=== PATIENT | female | born 1995 | race Caucasian/White ===

== ENCOUNTER 2017-12-30 08:37 | Inpatient (IN) ==
[2017-12-30] MEDS ORDERED: Aluminum/Magnesium/Simethacone Susp 30 ML UDC PO PRN (11:03)
[2017-12-30] MEDS ORDERED: Bisacodyl 10 MG Supp RECTAL PRN (11:03)
[2017-12-31] MEDS: Acetaminophen 325 MG Tablet PO PRN (06:54)
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
[2017-12-31 09:21] LABS: Anion Gap 8 meq/L (5-15); Blood Urea Nitrogen 11 mg/dL (7-18); Chloride 104 meq/L (98-107); Glomerular Filtration Rate Greater Than 89 mL/min (>89); Glucose,Random 120 mg/dL (74-106); Potassium 3.7 meq/L (3.5-5.1); Sodium 140 meq/L (136-145)
[2017-12-31 09:22] LABS: Cholesterol 182 mg/dL (120-200)
[2017-12-31 09:31] LABS: Chol/HDL Ratio 4.26 Ratio; HDL Cholesterol 42.7 mg/dL (40.0-60.0); LDL Cholesterol,Calculated 119 mg/dL (0-99); Triglycerides 100 mg/dL (42-150)
[2017-12-31 16:03] LABS: Hemoglobin A1c 5.7 % (4.3-6.0)
[2017-12-31] MEDS ORDERED: traZODone 50 MG Tablet PO PRN (21:00)
--- NOTE | 2018-01-01 13:36 | ECG ---
Date Performed: 12/31/2017 Time Performed: 10:25:50 PTAGE: 22 years EKG: Sinus rhythm NORMAL ECG NO PREVIOUS TRACING DOCTOR: Luis Antonio Mustafa Interpretating Date/Time 01/01/2018 13:31:07
--- NOTE | 2018-01-01 13:45 | P.PNPSY ---
Subjective Chief Complaint: Depression, suicidal ideation Remarks: Patient seen and examined with nurse. Chart reviewed. Case discussed with nursing staff. Case discussed in treatment team. On my examination today, the patient reports that her mood is much improved. She says that she learned yesterday that her fianc may qualify for a program that will allow them to buy a house, and she is quite pleased to have learned this information. She says that she slept well although she had some vivid dreams, not nightmares. No PTSD symptoms. Denies any suicidal ideation. She is quite future oriented. 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 Denies side effects from medications. No physical complaints. Vital Signs Temp Pulse Resp BP Pulse Ox 01/01/18 16:00 97.6 F 50 L 18 128/63 98 01/01/18 05:49 98.3 F 85 17 115/71 96 12/31/17 18:16 98.1 F 94 H 19 128/67 98 Laboratory Results - last 24 hr 12/31/17 08:30 Hemoglobin A1c 5.7 Labs reviewed. TSH within normal limits. EKG read as normal sinus rhythm, QTC not prolonged. Review of Systems All other systems reviewed negative except as stated in HPI Mental Status Examination Appearance: Appropriate Consciousness: Alert Orientation: x4 Motor Activity: Normal gait Speech: Unremarkable Language: Adequate Fund of Knowledge: Adequate Attention and Concentration: Adequate Memory: Unremarkable Mood: Appropriate Affect: Appropriate Thought Process & Associations: Intact, Logical, Linear Thought Content: Appropriate Hallucination Type: None Delusion Type: None Suicidal Ideation: No Suicidal Plan: No Suicidal Intention: No Homicidal Ideation: No Homicidal Plan: No Homicidal Intention: No Mental Status Exam Remarks: Insight and judgment are fair. Assessment and Plan - Assessment (1) Adjustment disorder with depressed mood Code(s): F43.21 - Adjustment disorder with depressed mood Status: Acute (2) Chronic post-traumatic stress disorder (PTSD) Code(s): F43.12 - Post-traumatic stress disorder, chronic Status: Acute (3) Polysubstance abuse Code(s): F19.10 - Other psychoactive substance abuse, uncomplicated Status: Acute - Plan Plan: Rapid improvement in mood more consistent with adjustment reaction than major depressive episode. I have adjusted diagnostic schema accordingly. Continue Paxil as ordered. Continue to monitor on the inpatient unit. Counselor to obtain collateral information from fianc. Continue other medications and care as ordered. Justification for Continued Inpatient Stay: Monitoring for impairment in safety, none noted. Discharge Planning: Possible discharge next 1-2 days. Request Healthcare Surrogate/Guardian Advocate?: No
--- NOTE | 2018-01-01 15:19 | P.TTN ---
- Patient Problems Problems: 1. Discharge planning 2. Medication compliance 3. Knowledge deficit 4. Lack of coping skills - Progress Toward Goals Provider Present: Dr. Shandra Drake Provider Input: collateral input from boyfriend would be helpful in safe discharge planning. patient is a cutter Psychiatric Counselors Present: Eloisa Romo LCSW (patient shares she follows up at [facility] and lives with fiance and family and is hoping to leave tomorrow ) Group Spec/RT/OT/VICK Present: NAVA Cronin (attends all groups and is pleasant ) - Documentation Teaching Recipient: Patient
[2018-01-01] MEDS: Acetaminophen 325 MG Tablet PO PRN (22:49)
[2018-01-02 06:09] VITALS: BP 117/69; PULSE 81; RESP 14; TEMP 97.8; O2SAT 97
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
== END 2018-01-02 20:05 | disposition home or self-care (01) ==
LOC: H270 09:03 → H260 12-31 10:46
PROVIDERS: ADMIT Psychiatry & Neurology Psychiatry; ATTEND Psychiatry & Neurology Psychiatry